=== PATIENT | male | born 1980 | race Caucasian/White ===

== ENCOUNTER 2023-08-18 18:27 | Inpatient (IN) | payer MEDICAID ==
[~2023-08-18] VITALS: Ht 218.4 cm; Wt 93.0 kg
[2023-08-18 19:11] LABS: BASOPHILS # (AUTO) 0.1 K/uL (0.0-0.2); BASOPHILS % (AUTO) 0.9 % (0.0-2.0); EOSINOPHILS % (AUTO) 0.4 % (0.0-6.0); HEMATOCRIT 40 % (39-51); HEMOGLOBIN 13.9 g/dL (13.5-17.5); LYMPHOCYTES # (AUTO) 1.9 K/uL (0.8-4.8); LYMPHOCYTES % (AUTO) 17.3 % (20.0-44.0); MEAN CORPUSCULAR HEMOGLOBIN 28 PG (26.0-33.0); MEAN CORPUSCULAR HGB CONC 35 g/dl (31.0-36.0); MEAN CORPUSCULAR VOLUME 81 fL (80-96); MONOCYTES # (AUTO) 1.7 K/uL (0.1-1.30); MONOCYTES % (AUTO) 15.7 % (2.0-12.0); NEUTROPHILS # (AUTO) 7.1 K/uL (1.8-8.9); NEUTROPHILS % (AUTO) 65.7 % (43.0-81.0); PLATELET COUNT (AUTO) 250 K/uL (150-450); RED BLOOD CELL COUNT(AUTO) 4.94 MIL/uL (4.5-6.0); WHITE BLOOD COUNT (AUTO) 10.9 K/uL (4.3-11.0)
[2023-08-18 19:33] LABS: APPEARANCE,URINE Clear (CLEAR); BILIRUBIN,URINE Negative (NEGATIVE); BLOOD, URINE Negative Ery/uL (NEGATIVE); COLOR,URINE Other (YELLOW); KETONES,URINE Negative (NEGATIVE); LEUKOCYTE ESTERASE ,URINE Negative (NEGATIVE); NITRITE, URINE Negative (NEGATIVE); PROTEIN,URINE Negative (NEGATIVE); UGLUCOSE Negative (NEGATIVE); UROBILINOGEN,URINE 0.2 EU/dL (0.2)
[2023-08-18 19:38] LABS: ALANINE AMINOTRANSFERASE 20 U/L (12-78); ALBUMIN 3.7 g/dL (3.4-5.0); ALCOHOL, BLOOD < 3 mg/dL (0-10); ALKALINE PHOSPHATASE 67 U/L (46-116); ASPARTATE AMINOTRANSFERASE 33 U/L (15-37); BILIRUBIN,DIRECT 0.4 mg/dL (0.0-0.2); BILIRUBIN,TOTAL 2.3 mg/dL (0.2-1.0); CALCIUM, SERUM 8.6 mg/dL (8.5-10.1); CARBON DIOXIDE 25 mmol/L (21-32); CHLORIDE 86 mmol/L (98-107); CREATININE 0.7 mg/dL (0.6-1.3); GLUCOSE 107 mg/dL (74-106); POTASSIUM 3.4 mmol/L (3.5-5.1); TOTAL PROTEIN, SERUM 7.1 g/dL (6.4-8.2); UREA NITROGEN, BLOOD 10 mg/dL (7-18)
[2023-08-18 19:41] LABS: ACETAMINOPHEN 0 ug/ml (10-30); AMPHETAMINE, URINE NEGATIVE (NEGATIVE); BARBITURATE, URINE NEGATIVE (NEGATIVE); BENZODIAZEPINE, URINE NEGATIVE (NEGATIVE); CANNABINOID, URINE NEGATIVE (NEGATIVE); COCCAINE, URINE NEGATIVE (NEGATIVE); OPIATE, URINE NEGATIVE (NEGATIVE); PHENCYCLIDINE SCREEN,URINE NEGATIVE (NEGATIVE); SALICYLATE < 0.2 mg/dL (2.8-20.0)
[2023-08-18 19:42] LABS: SODIUM SERUM 119 mmol/L (136-145)
[2023-08-18] MEDS: IV NS 0.9% 1,000 ML BAG IV ONE (20:21)
[2023-08-18] MEDS ORDERED: Z GUARD REMEDY 4 OZ OINT TP PRN (23:00)
[2023-08-18] MEDS ORDERED: MAGNESIUM HYDROXIDE 30 ML UDC PO PRN (23:00)
[2023-08-18] MEDS ORDERED: ACETAMINOPHEN 325 MG TABLET PO PRN (23:00)
[2023-08-18] MEDS ORDERED: MAG HYDROX/AL HYDROX/SIMETH 30 ML UDC PO PRN (23:00)
[2023-08-18] MEDS ORDERED: ONDANSETRON HCL/PF 4 MG/2 ML VIAL IVP PRN (23:00)
[2023-08-18] MEDS ORDERED: HALO5TAB PO ×2 (23:35→23:40)
[2023-08-18] MEDS ORDERED: BENZ2TAB7 PO (23:42)
[2023-08-18] MEDS: ENOXAPARIN SODIUM 40 MG/0.4 ML DISP.SYRIN SQ SCH (23:43)
[2023-08-19] VITALS (7 sets, daily range): BP systolic 116–151; BP diastolic 69–88; TEMP 97.6–99.3; O2SAT 95–100
[2023-08-19 00:37] LABS: BASOPHILS % (MANUAL) 0 % (0.0-2.0); EOSINOPHILS % (MANUAL) 0 % (0-4); LYMPHOCYTES % (MANUAL) 15 % (16-48); MONOCYTES % (MANUAL) 12 % (0-11.0); NEUTROPHILS % (MANUAL) 73 (42-76); PLATELET ESTIMATE ADEQUATE
[2023-08-19] MEDS: ZOLPIDEM TARTRATE 5 MG TABLET PO PRN (01:10)
[2023-08-19] MEDS: IV NS 0.9% 1,000 ML IV PRN (01:17)
[2023-08-19] MEDS ORDERED: METOPROLOL TARTRATE 50 MG TABLET PO ONE (02:00)
[2023-08-19 06:42] LABS: BASOPHILS % (AUTO) 0.6 % (0.0-2.0); HEMATOCRIT 37 % (39-51); HEMOGLOBIN 13.1 g/dL (13.5-17.5); LYMPHOCYTES # (AUTO) 1.1 K/uL (0.8-4.8); LYMPHOCYTES % (AUTO) 25.8 % (20.0-44.0); MEAN CORPUSCULAR HEMOGLOBIN 29 PG (26.0-33.0); MEAN CORPUSCULAR HGB CONC 35 g/dl (31.0-36.0); MEAN CORPUSCULAR VOLUME 82 fL (80-96); MONOCYTES # (AUTO) 0.9 K/uL (0.1-1.30); MONOCYTES % (AUTO) 20.4 % (2.0-12.0); NEUTROPHILS # (AUTO) 2.3 K/uL (1.8-8.9); NEUTROPHILS % (AUTO) 52.2 % (43.0-81.0); PLATELET COUNT (AUTO) 209 K/uL (150-450); RED BLOOD CELL COUNT(AUTO) 4.54 MIL/uL (4.5-6.0); RED CELL DISTRIBUTION WIDTH 13.3 % (11.5-15.0); WHITE BLOOD COUNT (AUTO) 4.4 K/uL (4.3-11.0)
[2023-08-19 06:57] LABS: ALBUMIN 3.1 g/dL (3.4-5.0); BILIRUBIN,DIRECT 0.3 mg/dL (0.0-0.2); BILIRUBIN,TOTAL 1.7 mg/dL (0.2-1.0); CALCIUM, SERUM 8.7 mg/dL (8.5-10.1); CREATININE 0.8 mg/dL (0.6-1.3); PHOSPHORUS 4.1 mg/dL (2.5-4.9); POTASSIUM 3.5 mmol/L (3.5-5.1); TOTAL PROTEIN, SERUM 6.3 g/dL (6.4-8.2)
[2023-08-19 07:20] LABS: THYROID STIMULATING HORMONE 0.628 uIU/mL (0.358-3.74)
[2023-08-19] MEDS ORDERED: CLON0.5T4 PO (07:48)
[2023-08-19] MEDS: PANTOPRAZOLE 40 MG TABLET.DR PO SCH (09:49)
[2023-08-19 11:00] LABS: BASOPHILS % (MANUAL) 0 % (0.0-2.0); EOSINOPHILS % (MANUAL) 1 % (0-4); LYMPHOCYTES % (MANUAL) 29 % (16-48); MONOCYTES % (MANUAL) 20 % (0-11.0); NEUTROPHILS % (MANUAL) 50 (42-76); PLATELET ESTIMATE ADEQUATE
[2023-08-19] MEDS: BENZTROPINE MESYLATE (1 MG) 1 MG TABLET PO SCH (12:41)
[2023-08-19] MEDS: HALOPERIDOL 1 MG TABLET PO SCH (21:20)
[2023-08-20] VITALS: BP 119/70; TEMP 98.4; O2SAT 96
[2023-08-20 04:00] VITALS: BP 120/76; TEMP 98.9; O2SAT 96
[2023-08-20] MEDS: clonazePAM 0.5 MG TABLET PO PRN (04:05)
[2023-08-20 08:00] VITALS: BP 113/71; TEMP 99; O2SAT 96
[2023-08-20 08:11] LABS: BASOPHILS % (AUTO) 0.7 % (0.0-2.0); EOSINOPHILS # (AUTO) 0.1 K/uL (0.0-0.7); EOSINOPHILS % (AUTO) 2.8 % (0.0-6.0); HEMATOCRIT 38 % (39-51); HEMOGLOBIN 13.1 g/dL (13.5-17.5); LYMPHOCYTES # (AUTO) 1.5 K/uL (0.8-4.8); LYMPHOCYTES % (AUTO) 29.5 % (20.0-44.0); MEAN CORPUSCULAR HEMOGLOBIN 30 PG (26.0-33.0); MEAN CORPUSCULAR HGB CONC 35 g/dl (31.0-36.0); MEAN CORPUSCULAR VOLUME 85 fL (80-96); MONOCYTES # (AUTO) 0.6 K/uL (0.1-1.30); MONOCYTES % (AUTO) 11.3 % (2.0-12.0); NEUTROPHILS # (AUTO) 2.8 K/uL (1.8-8.9); NEUTROPHILS % (AUTO) 55.7 % (43.0-81.0); PLATELET COUNT (AUTO) 181 K/uL (150-450); RED BLOOD CELL COUNT(AUTO) 4.42 MIL/uL (4.5-6.0); RED CELL DISTRIBUTION WIDTH 13.7 % (11.5-15.0)
[2023-08-20 08:45] LABS: CALCIUM, SERUM 8.1 mg/dL (8.5-10.1); CREATININE 0.8 mg/dL (0.6-1.3); PHOSPHORUS 4.2 mg/dL (2.5-4.9); POTASSIUM 3.2 mmol/L (3.5-5.1)
[2023-08-20] MEDS: POTASSIUM CHLORIDE 20 MEQ TAB.PRT.SR PO SCH (11:00)
[2023-08-20 12:00] VITALS: BP 129/68; TEMP 98.2; O2SAT 96
[2023-08-20 16:00] VITALS: BP 102/71; TEMP 98.2; O2SAT 96
[2023-08-20 20:00] VITALS: BP 135/86; TEMP 99.2; O2SAT 96
[2023-08-21] VITALS: BP 124/76; TEMP 98.2; O2SAT 96
[2023-08-21 04:00] VITALS: BP 135/78; TEMP 98.5; O2SAT 96
[2023-08-21 08:00] VITALS: BP 111/72; TEMP 98; O2SAT 95
== END 2023-08-21 14:12 | disposition home or self-care (01) | DRG 426 ==
LOC: ER 18:35 → TELE1 20:55 → MEDSG1 08-21 10:18
PROVIDERS: ADMIT Student in an Organized Health Care Education/Training Program; ATTEND Nurse Practitioner Family
DX: E87.1 Hypo-osmolality and hyponatremia (principal); F29 Unspecified psychosis not due to a substance or known physiological condition; E87.6 Hypokalemia; E87.79 Other fluid overload; R55 Syncope and collapse; L55.9 Sunburn, unspecified; F43.10 Post-traumatic stress disorder, unspecified; J45.909 Unspecified asthma, uncomplicated; L30.9 Dermatitis, unspecified; R63.1 Polydipsia; R74.01 Elevation of levels of liver transaminase levels
CPT/HCPCS: 36415; 71045-TC; 80048-TC; 80061-TC; 80076-TC; 83735-TC; 84100-TC; 84295-TC; 84443-TC; 84484-TC; 85025-TC; 87081-TC; 93307-TC; 97112-TC; 97116-TC; 97530-TC; G0378; G0480; J1650; J3490

== ENCOUNTER 2025-01-18 04:34 | Emergency (ER) | payer MEDICAID, OTHER ==
[~2025-01-18] VITALS: Ht 188 cm; Wt 99.8 kg
[~2025-01-18 04:34] MED LIST: BENZ2TAB7 PO; CLON0.5T4 PO; HALO5TAB PO
[2025-01-18 04:48] VITALS: BP 140/94; TEMP 98.1; O2SAT 98
== END 2025-01-18 06:57 | disposition home or self-care (01) ==
LOC: ER 04:37
DX: R41.82 Altered mental status, unspecified (principal); F22 Delusional disorders; F41.0 Panic disorder [episodic paroxysmal anxiety]; Z79.899 Other long term (current) drug therapy